=== PATIENT | male | born 1970 | race Caucasian/White ===

== ENCOUNTER 2022-09-01 09:01 | Day surgery (SDC) | payer BC ==
[2022-08-30 10:02] VITALS: BMI 24.4
[2022-09-01] MEDS ORDERED: LACTATED RINGERS 1,000 ML IV SCH (09:16)
[2022-09-01 09:26] VITALS: TEMP 97.5
[2022-09-01 09:35] LABS: Glucose,Whole Blood 95 mg/dL (70-110)
[2022-09-01] MEDS ORDERED: PROPOFOL 10 MG/ML 20 ML VIAL IV ONE (09:52)
[2022-09-01] MEDS ORDERED: LIDOCAINE 2% INJ 20 MG/ML (2 ML VIAL) ONE (09:52)
--- NOTE | 2022-09-01 10:15 | P.PCN ---
Date of Procedure: 09/01/22 Procedure(s) Performed: Brief history: Patient is a pleasant 51-year-old white scheduled for an elective upper endoscopy as well as colonoscopy as a part of evaluation of GERD and screening for colon cancer. Procedure performed: Esophagogastroduodenoscopy with biopsy Colonoscopy with snare polypectomy Preoperative diagnosis: Long-standing history of GERD Screening for colon cancer Anesthesia: MAC Procedure: After informed consent was obtained from the patient was brought into the endoscopy unit and IV sedation was administered by anesthesia under continuous monitoring. Initially upper endoscopy was done. The Olympus GF 160 video endoscope was inserted inserted into the mouth and esophagus intubated without any difficulty and was gradually advanced into the stomach and duodenum and carefully examined. The bulb and second part of the duodenum appeared normal. The scope was then withdrawn into the stomach adequately insufflated with air and upon careful examination the antrum had mild antral gastritis and biopsies were done from this area. Mucosa of the body, cardia and fundus appeared normal. The scope was then withdrawn into the esophagus. The GE junction was located at 40 cm to the incisors. It appeared regular with no erythema erosions or ulcerations. Rest of the esophagus appeared normal. Patient tolerated the procedure well. At this time the patient continued to remain sedation. Initial digital rectal examination was normal. Olympus CF 160 video colonoscope was then inserted into the rectum and gradually advanced to the cecum without any difficulty. Careful examination was performed as the scope was gradually being withdrawn. The prep was excellent. The cecum, ascending colon, transverse colon, descending colon, sigmoid colon and rectum appeared normal. In the distal rectum there was a 1 cm polyp removed by snare polypectomy. Retroflexion was performed in the rectum and no lesions were noted. Patient tolerated the procedure well. Impression: 1. Upper endoscopy revealed mild antral gastritis but no evidence of esophagitis or Javed's esophagus 2. Colonoscopy revealed a 1 segment of distal rectal polyp status post polypectomy Recommendations: Findings of this examination were discussed with the patient as well as his family. He was advised to follow with the biopsy results. If the biopsy reveals adenoma he can have a repeat colonoscopy in 3 years.
[2022-09-01 10:26] VITALS: RESP 18
[2022-09-01 10:41] VITALS: BP 117/54; PULSE 59
== END 2022-09-01 11:12 | disposition home or self-care (01) ==
LOC: ORWHC2ENDO 09:01
PROVIDERS: ATTEND Internal Medicine Gastroenterology
DX: Z12.11 Encounter for screening for malignant neoplasm of colon (principal); K21.9 Gastro-esophageal reflux disease without esophagitis; K31.9 Disease of stomach and duodenum, unspecified; Z79.899 Other long term (current) drug therapy
CPT/HCPCS: 88305; 45385; 43239; J2704; J2001

== ENCOUNTER 2022-10-19 08:27 | Emergency (ER) | payer BC ==
[2022-10-19 08:38] VITALS: RESP 18
[2022-10-19 09:04] LABS: Glucose,Whole Blood 104 mg/dL (70-110)
[2022-10-19] MEDS ORDERED: SODIUM CHLORIDE 0.9% 1,000 ML IV ONE (09:13)
[2022-10-19] MEDS ORDERED: KETOROLAC 15 MG/ML 1 ML VIAL IVP STA (09:13)
[2022-10-19] MEDS ORDERED: SODIUM CHLORIDE 0.9% 500 ML 500 ML IV ONE (09:13)
[2022-10-19 10:20] LABS: Basophils % (A) 0 %; Eosinophils # (A) 0.1 k/uL (0-0.7); Eosinophils % (A) 1 %; HCT 46.2 % (39.0-53.0); HGB 15.7 gm/dL (13.0-17.5); Lymphocytes % (A) 14 %; MCV 97.1 fL (80.0-100.0); Mean Platelet Volume 8.9; Monocytes # (A) 0.9 k/uL (0-1.0); Monocytes % (A) 6 %; Neutrophils # (A) 11.2 k/uL (1.3-7.7); Neutrophils % (A) 78 %; Platelet Count 260 k/uL (150-450); RBC 4.76 m/uL (4.30-5.90); RDW 12.3 % (11.5-15.5); WBC 14.3 k/uL (3.8-10.6)
[2022-10-19 10:38] LABS: Prothrombin Time 10.2 sec (9.0-12.0)
[2022-10-19 11:04] LABS: ALT 21 U/L (4-49); AST 26 U/L (17-59); African American GFR (CKD) >90 (>60 ml/min/1.73 sqM); Albumin 4.4 g/dL (3.5-5.0); Alkaline Phosphatase 63 U/L (38-126); Anion Gap 10 mmol/L; Blood Urea Nitrogen 17 mg/dL (9-20); Calcium 9.5 mg/dL (8.4-10.2); Carbon Dioxide 26 mmol/L (22-30); Chloride 99 mmol/L (98-107); Creatine Kinase 94 U/L (55-170); Glucose 100 mg/dL (74-99); Magnesium 2.1 mg/dL (1.6-2.3); Non-African American GFR(CKD) >90 (>60 ml/min/1.73 sqM); Potassium 4.4 mmol/L (3.5-5.1); Sodium 135 mmol/L (137-145); Total Bilirubin 0.9 mg/dL (0.2-1.3); Total Protein 7.6 g/dL (6.3-8.2)
--- NOTE | 2022-10-19 11:07 | US ---
EXAMINATION TYPE: US venous doppler duplex LE DATE OF EXAM: 10/19/2022 9:09 AM COMPARISON: US 2010 CLINICAL INDICATION: Male, 52 years old with history of pain, hx of; Bilateral leg pain, patient evangelina ng aspirin SIDE PERFORMED: Bilateral TECHNIQUE: The lower extremity deep venous system is examined utilizing real time linear array sonog valentin with graded compression, doppler sonography and color-flow sonography. VESSELS IMAGED: Common Femoral Vein Deep Femoral Vein Greater Saphenous Vein * Femoral Vein Popliteal Vein Small Saphenous Vein * Proximal Calf Veins (* superficial vessels) Right Leg: Appears negative for DVT Left Leg: Appears negative for DVT IMPRESSION: Grayscale, color doppler, spectral doppler imaging performed of the deep veins of the lo wer extremities. There is normal flow, compressibility, vascular waveforms.
--- NOTE | 2022-10-19 11:19 | CT ---
EXAMINATION TYPE: CT chest angio for PE CT DLP: 377.2 mGycm, Automated exposure control for dose reduction was used. DATE OF EXAM: 10/19/2022 11:08 AM COMPARISON: None CLINICAL INDICATION:Male, 52 years old with history of pain, elevated D-dimer; elevated d-dimer, bila teral leg pain and weakness TECHNIQUE/CONTRAST: CTA scan of the thorax is performed with IV Contrast, patient injected with 100 mL of Isovue 370, MIP images are created and reviewed these are created on a separate workstation.. FINDINGS: Pulmonary Artery: There is no evidence for a filling defect within the pulmonary vasculature to sugge st acute pulmonary embolism. The pulmonary artery is of normal size. Lungs/Pleura: No evidence of focal consolidation, pleural effusion or pneumothorax. Airway: Large airways are patent. Heart: Heart is within normal limits for size. Vasculature: No evidence of aortic aneurysm. Mediastinum: No gross evidence of adenopathy. Musculoskeletal: No acute osseous abnormalities Soft Tissues: Unremarkable. Lower neck: Large left thyroid gland. Upper Abdomen: No significant findings. IMPRESSION: 1. No evidence of pulmonary embolism. 2. Left gland nodule goiter
[2022-10-19] MEDS ORDERED: CYCLOBENZAPRINE 10MG STARTER 3 TAB BTL PO STA (11:41)
--- NOTE | 2022-10-19 11:44 | ED ---
General Adult HPI - General Chief complaint: Recheck/Abnormal Lab/Rx Stated complaint: body stiffness Time Seen by Provider: 10/19/22 08:49 Source: patient, RN notes reviewed Mode of arrival: ambulatory Limitations: no limitations - History of Present Illness Initial comments: 52-year-old male presents emergency Department with chief complaint of muscle pain. Patient states that his been doing left knee issue in which she had fluid drained by orthopedics for concerns of possible gout this came back negative. Patient did have an MRI yesterday showing meniscus tear. Patient states last few days she's had increasing cramping, pain is pinching region which he states he has a history DVT and feels very similar. He states charley horse. He states today's developed upper trap discomfort denies chest pain or shortness of breath he states he just feels very achy, states feels like he moves wrong he is to follow-up Sols horse. He denies abdominal complaints no change in activity states he is normally very active denies any nausea vomiting denies any decreased oral intake. - Related Data Home Medications Medication Instructions Recorded Confirmed Aspirin [Adult Low Dose Aspirin EC] 81 mg PO DAILY 02/01/16 09/01/22 Multivitamins, Thera [Multivitamin] 1 tab PO DAILY 02/01/16 09/01/22 Previous Rx's Medication Instructions Recorded Ketorolac [Toradol] 10 mg PO Q8HR #15 tab 10/19/22 Allergies Allergy/AdvReac Type Severity Reaction Status Date / Time No Known Allergies Allergy Verified 10/19/22 08:37 Review of Systems ROS Statement: Those systems with pertinent positive or pertinent negative responses have been documented in the HPI. ROS Other: All systems not noted in ROS Statement are negative. Past Medical History Past Medical History: Deep Vein Thrombosis (DVT), GERD/Reflux Additional Past Medical History / Comment(s): pt states has clotting disorder pt not aware of name of disorder, recent "burning" in esophagus, DVT LT LEG History of Any Multi-Drug Resistant Organisms: None Reported Past Surgical History: Orthopedic Surgery Additional Past Surgical History / Comment(s): arthroscopic lt knee Past Anesthesia/Blood Transfusion Reactions: Motion Sickness Past Psychological History: No Psychological Hx Reported Smoking Status: Never smoker Past Alcohol Use History: Occasional Past Drug Use History: None Reported - Past Family History Mother Family Medical History: No Reported History General Exam Limitations: no limitations General appearance: alert, in no apparent distress Head exam: Present: atraumatic, normocephalic, normal inspection Eye exam: Present: normal appearance, PERRL, EOMI. Absent: scleral icterus, conjunctival injection, periorbital swelling ENT exam: Present: normal exam, normal oropharynx, mucous membranes moist Neck exam: Present: normal inspection, full ROM. Absent: tenderness, meningismus, lymphadenopathy Respiratory exam: Present: normal lung sounds bilaterally. Absent: respiratory distress, wheezes, rales, rhonchi, stridor Cardiovascular Exam: Present: regular rate, normal rhythm, normal heart sounds. Absent: systolic murmur, diastolic murmur, rubs, gallop, clicks GI/Abdominal exam: Present: soft, normal bowel sounds. Absent: distended, tenderness, guarding, rebound, rigid Extremities exam: Present: full ROM, tenderness, joint swelling. Absent: pedal edema Neurological exam: Present: alert, oriented X3 Course Vital Signs 10/19/22 10/19/22 10/19/22 08:33 08:49 09:00 Temperature 98 F Pulse Rate 70 54 L Respiratory 18 Rate Blood Pressure 120/77 120/80 O2 Sat by Pulse 100 100 Oximetry 10/19/22 10/19/22 10/19/22 09:30 10:00 10:30 Temperature Pulse Rate 60 57 L 62 Respiratory Rate Blood Pressure 141/82 126/110 120/72 O2 Sat by Pulse Oximetry 10/19/22 10/19/22 10/19/22 11:00 11:30 12:00 Temperature 98.9 F Pulse Rate 64 62 Respiratory Rate Blood Pressure 135/68 129/73 O2 Sat by Pulse Oximetry EKG Findings - EKG Comments: EKG Findings:: EKG performed at 8:58 sinus bradycardia rate of 57 SD 152 QRS 113 QT/QTC 416/410 - EKG Results: EKG: interpreted by ERMD Medical Decision Making - Medical Decision Making Was pt. sent in by a medical professional or institution (, PA, RN PSYCHIATRIC, urgent care, hospital, or senior care...) When possible be specific @ -No Did you speak to anyone other than the patient for history (EMS, parent, family, police, friend...)? What history was obtained from this source @ -No Did you review nursing and triage notes (agree or disagree)? Why? @ -I reviewed and agree with nursing and triage notes Were old charts reviewed (outside hosp., previous admission, EMS record, old EKG, old radiological studies, urgent care reports/EKG's, senior care records)? Report findings @ -No old charts were reviewed Differential Diagnosis (chest pain, altered mental status, abdominal pain women, abdominal pain men, vaginal bleeding, weakness, fever, dyspnea, syncope, headache, dizziness, GI bleed, back pain, seizure, CVA, palpatations, mental health, musculoskeletal)? @ -Myostitois, viral infection, DVT, PE, rhabdomyolysis EKG interpreted by me (3pts min.). @ -As above X-rays interpreted by me (1pt min.). @ -None done CT interpreted by me (1pt min.). @ -CT chest PE shows no acute process is no evidence of PE U/S interpreted by me (1pt. min.). @ -us BILATERAL LOWER EXTREMITY NEGATIVE FOR ACUTE DVT What testing was considered but not performed or refused? (CT, X-rays, U/S, labs)? Why? @ -None What meds were considered but not given or refused? Why? @ -None Did you discuss the management of the patient with other professionals (professionals i.e. , PA, RN PSYCHIATRIC, lab, RT, psych nurse, social sciences chair, watch leader, teacher, compliance review officer, case management director)? Give summary @ -No Was smoking cessation discussed for >3mins.? @ -No Was critical care preformed (if so, how long)? @ -No Were there social determinants of health that impacted care today? How? (Homelessness, low income, unemployed, alcoholism, drug addiction, transportation, low edu. Level, literacy, decrease access to med. care, shelter, rehab)? @ -No Was there de-escalation of care discussed even if they declined (Discuss DNR or withdrawal of care, Hospice)? DNR status @ -No What co-morbidities impacted this encounter? (DM, HTN, Smoking, COPD, CAD, Cancer, CVA, ARF, Chemo, Hep., AIDS, mental health diagnosis, sleep apnea, morbid obesity)? @ -DVT history Was patient admitted / discharged? Hospital course, mention meds given and route, prescriptions, significant lab abnormalities, going to OR and other pertinent info. @ -Discharge patient has poly myalgia with no elevation CRP, CK or other acute finding patient ultrasound, CT is negative and did offer admission secondary to discomfort patient cries stating he felt better after Toradol. We discussed this could be a viral infection in nature that he should follow-up with rheumatology and return for worsening changes symptoms. Undiagnosed new problem with uncertain prognosis? @ -No Drug Therapy requiring intensive monitoring for toxicity (Heparin, Nitro, Insulin, Cardizem)? @ -No Were any procedures done? @ -No Diagnosis/symptom? @ -Polymyalgia Acute, or Chronic, or Acute on Chronic? @ -Acute Uncomplicated (without systemic symptoms) or Complicated (systemic symptoms)? @ -complicated Side effects of treatment? @ -No Exacerbation, Progression, or Severe Exacerbation? @ -No Poses a threat to life or bodily function? How? (Chest pain, [place], [place], pneumonia, PE, COPD, DKA, ARF, appy, cholecystitis, CVA, Diverticulitis, Homicidal, Suicidal, threat to staff... and all critical care pts) @ -No - Lab Data Result diagrams: 10/19/22 09:20 10/19/22 09:56 Lab Results 10/19/22 10/19/22 10/19/22 Range/Units 08:52 09:20 09:56 WBC 14.3 H (3.8-10.6) k/uL RBC 4.76 (4.30-5.90) m/uL Hgb 15.7 (13.0-17.5) gm/dL Hct 46.2 (39.0-53.0) % MCV 97.1 (80.0-100.0) fL MCH 33.0 (25.0-35.0) pg MCHC 34.0 (31.0-37.0) g/dL RDW 12.3 (11.5-15.5) % Plt Count 260 (150-450) k/uL MPV 8.9 Neutrophils % 78 % Lymphocytes % 14 % Monocytes % 6 % Eosinophils % 1 % Basophils % 0 % Neutrophils # 11.2 H (1.3-7.7) k/uL Lymphocytes # 2.0 (1.0-4.8) k/uL Monocytes # 0.9 (0-1.0) k/uL Eosinophils # 0.1 (0-0.7) k/uL Basophils # 0.0 (0-0.2) k/uL PT 10.2 (9.0-12.0) sec INR 1.0 (<1.2) APTT 24.0 (22.0-30.0) sec D-Dimer 1.18 H (<0.60) mg/L FEU Sodium (137-145) mmol/L Potassium (3.5-5.1) mmol/L Chloride (98-107) mmol/L Carbon Dioxide (22-30) mmol/L Anion Gap mmol/L BUN (9-20) mg/dL Creatinine (0.66-1.25) mg/dL Est GFR (CKD-EPI)AfAm (>60 ml/min/1.73 sqM) Est GFR (CKD-EPI)NonAf (>60 ml/min/1.73 sqM) Glucose (74-99) mg/dL POC Glucose (mg/dL) 104 (70-110) mg/dL POC Glu Copier Technician ID Sahara Buckner Calcium (8.4-10.2) mg/dL Magnesium (1.6-2.3) mg/dL Total Bilirubin (0.2-1.3) mg/dL AST (17-59) U/L ALT (4-49) U/L Alkaline Phosphatase (38-126) U/L Creatine Kinase (55-170) U/L Troponin I (0.000-0.034) ng/mL C-Reactive Protein (<1.0) mg/dL Total Protein (6.3-8.2) g/dL Albumin (3.5-5.0) g/dL Heterophile Antibody (Negative) 10/19/22 10/19/22 10/19/22 Range/Units 09:56 09:56 09:58 WBC (3.8-10.6) k/uL RBC (4.30-5.90) m/uL Hgb (13.0-17.5) gm/dL Hct (39.0-53.0) % MCV (80.0-100.0) fL MCH (25.0-35.0) pg MCHC (31.0-37.0) g/dL RDW (11.5-15.5) % Plt Count (150-450) k/uL MPV Neutrophils % % Lymphocytes % % Monocytes % % Eosinophils % % Basophils % % Neutrophils # (1.3-7.7) k/uL Lymphocytes # (1.0-4.8) k/uL Monocytes # (0-1.0) k/uL Eosinophils # (0-0.7) k/uL Basophils # (0-0.2) k/uL PT (9.0-12.0) sec INR (<1.2) APTT (22.0-30.0) sec D-Dimer (<0.60) mg/L FEU Sodium 135 L (137-145) mmol/L Potassium 4.4 (3.5-5.1) mmol/L Chloride 99 (98-107) mmol/L Carbon Dioxide 26 (22-30) mmol/L Anion Gap 10 mmol/L BUN 17 (9-20) mg/dL Creatinine 0.92 (0.66-1.25) mg/dL Est GFR (CKD-EPI)AfAm >90 (>60 ml/min/1.73 sqM) Est GFR (CKD-EPI)NonAf >90 (>60 ml/min/1.73 sqM) Glucose 100 H (74-99) mg/dL POC Glucose (mg/dL) (70-110) mg/dL POC Glu Copier Technician ID Calcium 9.5 (8.4-10.2) mg/dL Magnesium 2.1 (1.6-2.3) mg/dL Total Bilirubin 0.9 (0.2-1.3) mg/dL AST 26 (17-59) U/L ALT 21 (4-49) U/L Alkaline Phosphatase 63 (38-126) U/L Creatine Kinase 94 (55-170) U/L Troponin I <0.012 (0.000-0.034) ng/mL C-Reactive Protein 2.0 H (<1.0) mg/dL Total Protein 7.6 (6.3-8.2) g/dL Albumin 4.4 (3.5-5.0) g/dL Heterophile Antibody Negative (Negative) Disposition Clinical Impression: Myalgia, Knee pain Disposition: HOME SELF-CARE Condition: Stable Instructions (If sedation given, give patient instructions): Musculoskeletal Pain (ED) Additional Instructions: Please return to the Emergency Department if symptoms worsen or any other concerns. Prescriptions: Ketorolac [Toradol] 10 mg PO Q8HR #15 tab Is patient prescribed a controlled substance at d/c from ED?: No Referrals: None,Stated [Primary Care Provider] - 1-2 days Rita Martinez MD [STAFF PHYSICIAN] - 1-2 days Time of Disposition: 11:43
[2022-10-19 12:06] VITALS: BP 129/73; PULSE 62; TEMP 98.9
== END 2022-10-19 12:32 | disposition home or self-care (01) ==
LOC: EC 08:27
DX: M79.18 Myalgia, other site (principal)
CPT/HCPCS: 36415; 93005; 85379; 80053; 82550; 83735; 84484; 85025; 85610; 85730; 86140; 86308; 86618; 93970; 71275; 99284; 96374; 96361; J1885; Q9967

== ENCOUNTER → 2022-12-22 | Outpatient (CLI) | payer BC ==
[2022-12-23 02:07] LABS: HCT 42.8 % (39.6-50.0); MCHC 32.7 d/dL (32.0-37.0); MCV 97.9 FL (80.0-97.0); Mean Platelet Volume 10.8 FL (9.5-12.2); NRBC Per 100 WBC 0 X 10*3/uL (0.00-0.01); Platelet Count 303 X 10*3/uL (140-440); RBC 4.37 X 10*6/uL (4.40-5.60); RDW 13.4 % (11.5-14.5); WBC 9.66 X 10*3/uL (4.50-10.00)
[2022-12-23 02:33] LABS: Rheumatoid Factor, Qnt <15 IU/mL (0-15)
[2022-12-23 02:46] LABS: Streptolysin O Ab(ASO) 84 IntlUnit/L (0-200)
[2022-12-23 04:20] LABS: Erythrocyte Sedimentation Rate 14 mm/Hr (0-20)
[2022-12-23 12:32] LABS: HLA B27 NEGATIVE
== END | disposition home or self-care (01) ==
LOC: LABWHC1 15:51
PROVIDERS: ATTEND Orthopaedic Surgery Sports Medicine
DX: Z48.89 Encounter for other specified surgical aftercare (principal); M23.332 Other meniscus derangements, other medial meniscus, left knee; M25.511 Pain in right shoulder; M25.462 Effusion, left knee; M75.41 Impingement syndrome of right shoulder
CPT/HCPCS: 36415; 84443; 85027; 85652; 86038; 86060; 86140; 86431; 86618; 86812

== ENCOUNTER → 2023-01-05 | Outpatient (CLI) | payer BC ==
[2023-01-05 17:21] LABS: Appearance,BF Cloudy; Color,BF Yellow
[2023-01-05 17:40] LABS: Nucleated Cells, Body Fluid 13611 /uL; RBC, Body Fluid 2000 /uL
[2023-01-05 17:42] LABS: Mononuclear WBC,Body Fluid 18 %; Polynuclear WBC,Body Fluid 82 %; Total Cells Counted,Body Fluid 100
[2023-01-06 02:27] LABS: HCT 43.4 % (39.6-50.0); HGB 14.3 g/dL (13.0-17.0); MCHC 32.9 g/dL (32.0-37.0); MCV 97.1 FL (80.0-97.0); Mean Platelet Volume 10.2 FL (9.5-12.2); NRBC Per 100 WBC 0 X 10*3/uL (0.00-0.01); Platelet Count 329 X 10*3/uL (140-440); RBC 4.47 X 10*6/uL (4.40-5.60); RDW 13.1 % (11.5-14.5)
[2023-01-06 02:28] LABS: C Reactive Protein 3.5 mg/dL (0.00-0.80); T4, Free (Free Thyroxine) 1.12 ng/dL (0.80-1.80)
[2023-01-06 02:48] LABS: Erythrocyte Sedimentation Rate 9 mm/Hr (0-20)
[2023-01-06 05:00] LABS: Synovial Fld Crystals None Seen (None Seen)
== END | disposition home or self-care (01) ==
LOC: LABWHC1 16:13
PROVIDERS: ATTEND Orthopaedic Surgery Sports Medicine
DX: Z48.89 Encounter for other specified surgical aftercare (principal); M25.462 Effusion, left knee; M23.332 Other meniscus derangements, other medial meniscus, left knee; M25.511 Pain in right shoulder; M75.41 Impingement syndrome of right shoulder; M62.81 Muscle weakness (generalized)
CPT/HCPCS: 36415; 83520; 84439; 84443; 84480; 85027; 85652; 86140; 87070; 87075; 87205; 89050; 89060

== ENCOUNTER → 2023-01-08 | Outpatient (CLI) | payer BC ==
--- NOTE | 2023-01-08 14:50 | US ---
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 1.3 X 0.9 x 1.1 cm, lower mid, solid or almost completely solid, hypoechoic nodule, which is wid er than tall, with ill-defined margins, without echogenic foci. Prior size: no previous TR3 Mildly Suspicious: FNA if ? 2.5 cm; Follow if ? 1.5 cm at 1, 3, and 5 y LEFT: # of nodules measured on left: 3 1. 3.8 X 3.0 x 3.0 cm, lower mid, solid or almost completely solid, isoechoic nodule, which is tall er than wide, with smooth margins, without echogenic foci. Prior size: no previous . [id number] Suspicious: FNA if ? 1 cm; Follow if ? 0.5 cm annually until 5 y 2. 2.0 X 1.3 x 1.7 cm, upper mid, solid or almost completely solid, hypoechoic nodule, which is wi christiana than tall, with smooth margins, without echogenic foci. Prior size: no previous TR4 Moderately Suspicious: FNA if ? 1.5 cm; Follow if ? 1 cm at 1, 2, 3, and 5 y 3. 1.8 X 1.2 x 1.5 cm, mid medial, solid or almost completely solid, hypoechoic nodule, which is wi christiana than tall, with smooth margins, without echogenic foci. Prior size: no previous .TR3 Mildly Suspicious: FNA if ? 2.5 cm; Follow if ? 1.5 cm at 1, 3, and 5 y ISTHMUS: # of nodules measured in the isthmus: 0 Bilateral neck scanned, no evidence of lymphadenopathy. IMPRESSION: Biopsy of 2 nodules recommended.
== END | disposition home or self-care (01) ==
LOC: RADUSWWP 13:37
PROVIDERS: ATTEND Orthopaedic Surgery Sports Medicine
DX: E04.2 Nontoxic multinodular goiter (principal)
CPT/HCPCS: 76536

== ENCOUNTER 2023-01-31 12:11 | Day surgery (SDC) | payer BC ==
[2023-01-31 13:41] VITALS: TEMP 97.7
--- NOTE | 2023-01-31 13:51 | US ---
ULTRASOUND GUIDED FNA THYROID BIOPSY: CLINICAL HISTORY: Request for 2 left-sided thyroid nodule FNA FINDINGS: The procedure was explained to the patient. The risks, complications, benefits and alternatives were discussed and any questions were answered. Informed consent was obtained. Patient was placed supin e on the ultrasound table and prepped and draped in the usual sterile fashion. Utilizing a 25 gauge needle, five passes were made into the requested 3.8 cm and 2.0 cm left thyroid nodules. Patient was stable throughout the procedure. Pathology is pending. All elements of maximal barrier technique were utilized. IMPRESSION: 1. Successful ultrasound guided FNA thyroid biopsy.
[2023-01-31 14:35] VITALS: BP 125/74; PULSE 76; RESP 16
== END 2023-01-31 14:00 | disposition home or self-care (01) ==
LOC: RADPROMAIN 12:11
PROVIDERS: ATTEND Family Medicine
DX: E04.2 Nontoxic multinodular goiter (principal)
CPT/HCPCS: 10005; 10006; 88173; 88305

== ENCOUNTER → 2023-03-30 | Outpatient (CLI) | payer BC ==
[2023-03-30 15:24] LABS: Basophils # (A) 0.03 X 10*3/uL (0.00-0.10); Basophils % (A) 0.3 %; Eosinophils # (A) 0 X 10*3/uL (0.04-0.35); Eosinophils % (A) 0 %; HCT 46.6 % (39.6-50.0); HGB 15.3 g/dL (13.0-17.0); Lymphocytes # (A) 0.74 X 10*3/uL (0.90-5.00); MCH 31.7 pg (27.0-32.0); MCHC 32.8 g/dL (32.0-37.0); MCV 96.5 FL (80.0-97.0); Mean Platelet Volume 10.8 FL (9.5-12.2); Monocytes # (A) 0.51 X 10*3/uL (0.20-1.00); Monocytes % (A) 4.8 %; NRBC Per 100 WBC 0 X 10*3/uL (0.00-0.01); Neutrophils # (A) 9.22 X 10*3/uL (1.80-7.70); Neutrophils % (A) 87.4 %; Platelet Count 227 X 10*3/uL (140-440); RBC 4.83 X 10*6/uL (4.40-5.60); RDW 14.7 % (11.5-14.5); WBC 10.55 X 10*3/uL (4.50-10.00)
[2023-03-30 15:30] LABS: ALT 75 U/L (10-49); AST 40 U/L (14-35); Albumin 4.4 g/dL (3.8-4.9); Albumin/Globulin Ratio 1.83 Ratio (1.60-3.17); Alkaline Phosphatase 55 U/L (41-126); BUN/Creat Ratio 14.09 Ratio (12.00-20.00); Blood Urea Nitrogen 15.5 mg/dL (9.0-27.0); Calcium 10.2 mg/dL (8.7-10.3); Carbon Dioxide 27.9 mmol/L (21.6-31.8); Chloride 102 mmol/L (96-109); Globulin 2.4 g/dL (1.6-3.3); Glucose 104 mg/dL (70-110); Potassium 4.8 mmol/L (3.5-5.5); Sodium 141 mmol/L (135-145); Total Bilirubin 0.3 mg/dL (0.3-1.2); Total Protein 6.8 g/dL (6.2-8.2)
[2023-03-30 16:40] LABS: Erythrocyte Sedimentation Rate 1 mm/Hr (0-20)
== END | disposition home or self-care (01) ==
LOC: LABWHC1 10:49
PROVIDERS: ATTEND Internal Medicine Rheumatology
DX: M45.9 Ankylosing spondylitis of unspecified sites in spine (principal)
CPT/HCPCS: 36415; 80053; 85025; 85652; 86140

== ENCOUNTER → 2023-11-22 | Outpatient (CLI) | payer BC ==
[2023-11-22 20:10] LABS: Basophils # (A) 0.05 X 10*3/uL (0.00-0.10); Basophils % (A) 0.6 %; Eosinophils # (A) 0.15 X 10*3/uL (0.04-0.35); Eosinophils % (A) 1.8 %; HCT 45.2 % (39.6-50.0); HGB 15.7 g/dL (13.0-17.0); Lymphocytes # (A) 1.77 X 10*3/uL (0.90-5.00); Lymphocytes % (A) 21.5 %; MCHC 34.7 g/dL (32.0-37.0); MCV 97.8 FL (80.0-97.0); Mean Platelet Volume 10.9 FL (9.5-12.2); Monocytes # (A) 0.71 X 10*3/uL (0.20-1.00); Monocytes % (A) 8.6 %; NRBC Per 100 WBC 0 X 10*3/uL (0.00-0.01); Neutrophils # (A) 5.52 X 10*3/uL (1.80-7.70); Neutrophils % (A) 67.3 %; Platelet Count 230 X 10*3/uL (140-440); RBC 4.62 X 10*6/uL (4.40-5.60); RDW 13.2 % (11.5-14.5); WBC 8.22 X 10*3/uL (4.50-10.00)
[2023-11-22 20:38] LABS: Erythrocyte Sedimentation Rate 2 mm/Hr (0-20)
[2023-11-22 20:45] LABS: Appearance,Urine Clear (Clear); Bilirubin,Urine Negative (Negative); Blood,Urine Negative (Negative); Color,Urine Yellow (Yellow); Ketones,Urine Negative (Negative); Nitrite,Urine Negative (Negative); PH, Urine 6.5; Urobilinogen,Urine 0.2 E.U./DL
[2023-11-22 22:18] LABS: ALT 24 U/L (10-49); AST 25 U/L (14-35); Albumin 4.6 g/dL (3.8-4.9); Alkaline Phosphatase 62 U/L (41-126); Blood Urea Nitrogen 26.2 mg/dL (9.0-27.0); C Reactive Protein <0.30 mg/dL (0.00-0.80); Calcium 9.8 mg/dL (8.7-10.3); Carbon Dioxide 23.8 mmol/L (21.6-31.8); Chloride 102 mmol/L (96-109); Globulin 2.3 g/dL (1.6-3.3); Glucose 100 mg/dL (70-110); Potassium 4.5 mmol/L (3.5-5.5); Prostate Specific Antigen 0.55 ng/mL (0.000-3.500); Sodium 140 mmol/L (135-145); Total Bilirubin 0.3 mg/dL (0.3-1.2); Total Protein 6.9 g/dL (6.2-8.2)
== END | disposition home or self-care (01) ==
LOC: LABWHC1 14:43
PROVIDERS: ATTEND Internal Medicine Rheumatology
DX: Z51.81 Encounter for therapeutic drug level monitoring (principal); M45.0 Ankylosing spondylitis of multiple sites in spine; Z79.899 Other long term (current) drug therapy
CPT/HCPCS: 36415; 80053; 81003; 83036; 84153; 84443; 85025; 85652; 86140; 86376

== ENCOUNTER → 2024-01-08 | Outpatient (CLI) | payer BC ==
[2024-01-09 02:37] LABS: HCT 45.1 % (39.6-50.0); HGB 15.1 g/dL (13.0-17.0); MCH 32.8 pg (27.0-32.0); MCHC 33.5 g/dL (32.0-37.0); MCV 97.8 FL (80.0-97.0); Mean Platelet Volume 11.5 FL (9.5-12.2); NRBC Per 100 WBC 0 X 10*3/uL (0.00-0.01); Platelet Count 213 X 10*3/uL (140-440); RBC 4.61 X 10*6/uL (4.40-5.60); RDW 12.9 % (11.5-14.5); WBC 8.22 X 10*3/uL (4.50-10.00)
[2024-01-09 03:34] LABS: ALT 26 U/L (10-49); AST 29 U/L (14-35); Albumin 4.6 g/dL (3.8-4.9); Alkaline Phosphatase 60 U/L (41-126); BUN/Creat Ratio 24.91 Ratio (12.00-20.00); Blood Urea Nitrogen 27.4 mg/dL (9.0-27.0); Calcium 9.7 mg/dL (8.7-10.3); Carbon Dioxide 24.3 mmol/L (21.6-31.8); Chloride 103 mmol/L (96-109); Chol/HDL Ratio 2.01 Ratio; Glucose 104 mg/dL (70-110); LDL Cholesterol,Calculated 99.6 mg/dL (0.0-131.0); Potassium 4.6 mmol/L (3.5-5.5); Sodium 140 mmol/L (135-145); Total Bilirubin 0.2 mg/dL (0.3-1.2); Total Protein 6.6 g/dL (6.2-8.2)
== END | disposition home or self-care (01) ==
LOC: LABWHC1 15:37
PROVIDERS: ATTEND Family Medicine
DX: I73.00 Raynaud's syndrome without gangrene (principal); E04.1 Nontoxic single thyroid nodule; M45.9 Ankylosing spondylitis of unspecified sites in spine; K21.9 Gastro-esophageal reflux disease without esophagitis
CPT/HCPCS: 36415; 80053; 80061; 83036; 84443; 85027

== ENCOUNTER → 2024-01-21 | Outpatient (CLI) | payer BC ==
[2024-01-22 08:26] LABS: HLA B27 NEGATIVE
== END | disposition home or self-care (01) ==
LOC: LABWHC1 14:25
PROVIDERS: ATTEND Family Medicine
DX: M45.9 Ankylosing spondylitis of unspecified sites in spine (principal)
CPT/HCPCS: 36415; 86812

== ENCOUNTER → 2024-06-18 | Outpatient (CLI) | payer BC ==
--- NOTE | 2024-06-19 07:50 | US ---
EXAMINATION TYPE: US thyroid st tissue head/neck DATE OF EXAM: 06/18/2024 COMPARISON: US CLINICAL INDICATION: Male, 53 years old with history of E04.1 NONTOXIC SINGLE THYROID NODULE; F/U Nod ules TECHNIQUE: Grayscale and color Doppler imaging of the thyroid gland. FINDINGS: GLAND SIZE: Right Lobe: 5.5 x 1.7 x 1.8 cm Overall Parenchyma: heterogeneous Left Lobe: 8.0 x 3.7 x 3.7 cm Overall Parenchyma: heterogeneous Isthmus Thickness: 0.3 cm NODULES RIGHT: # of nodules measured on right: 1 1. 1.2 X 0.9 x 0.9 cm, lower, solid or almost completely solid, hypoechoic nodule, which is wider than tall, with ill-defined margins, without echogenic foci. Prior size: 1.3 x 0.9 x 1.1 cm TR4 LEFT: # of nodules measured on left: 3 1. 4.1 X 3.6 x 2.9 cm, lower, solid or almost completely solid, isoechoic nodule, which is wider th an tall, with smooth margins, without echogenic foci. Prior size: 3.8 x 3.0 x 3.0 cm . TR3 2. 2.1 X 1.9 x 1.9 cm, mid, solid or almost completely solid, hypoechoic nodule, which is wider th an tall, with smooth margins, without echogenic foci. Prior size: 2.0 x 1.3 x 1.7 cm 2017 ACR TI-RADS LEVEL: TR4 3. 2.2 X 1.4 x 1.9 cm, upper, solid or almost completely solid, hypoechoic nodule, which is wider t banks tall, with smooth margins, without echogenic foci. Prior size: 1.8 x 1.2 x 1.5 cm 2017 ACR TI-RADS LEVEL: TR4 ISTHMUS: # of nodules measured in the isthmus: 0 Bilateral neck scanned, no evidence of lymphadenopathy. Nodules as described above. IMPRESSION: TR 4 and TR 3 nodules as discussed. Highest TI-RADS level nodule reported: 2017 ACR TI-RADS LEVEL: TI-RADS assessment score and recommendation for follow-up based on appropriate scoring and treatment protocols. TR3: If nodule size is ? 2.5 cm, FNA is recommended. If nodule size is ? 1.5 cm, follow-up imaging at 1, 3, and 5 years is recommended. TR4: If nodule size is ? 1.5 cm, FNA is recommended. If nodule size is ? 1.0 cm, follow-up imaging at 1, 2, 3, and 5 years is recommended. TR5: If nodule size is ? 1.0 cm, FNA is recommended. If nodule size is ? 0.5 cm, annual follow-up for up to 5 years is recommended. [email or web address] [facility], , 06/19/2024 7:47 AM
== END | disposition home or self-care (01) ==
LOC: RADUSWWP 14:49
PROVIDERS: ATTEND Family Medicine
DX: E04.2 Nontoxic multinodular goiter (principal)
CPT/HCPCS: 76536